=== PATIENT | female | born 1960 | race Caucasian/White ===

== ENCOUNTER 2020-07-12 00:02 | Emergency (ER) | payer MEDICARE, OTHER ==
[~2020-07-12] VITALS: Ht 154.9 cm; Wt 68.2 kg
[2020-07-12 00:09] VITALS: BP 142/79
[2020-07-12] MEDS ORDERED: ibuprofen tablet 400 MG TABLET PO ONE (00:35)
[2020-07-12] MEDS ORDERED: acetaminophen 325mg tablet PO ONE (00:35)
--- NOTE | 2020-07-12 01:00 | NUR ---
PT REPORTS CONCERN FOR HER POSSIBLE EYE FRACTURE TO THE RIGHT STATES WHE SHE WAS EVALUATED AT HOSPITAL 2 DAYS AGO SHE WAS TOLD SHE MAY HAVE A FRACTURE. DR. ROBERTS AWARE AND ORDERING CT SCAN. ONCE RESULTED, PT WILL LIKELY BE ABLE TO [facility]. GIVEN SNACKS.
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
== END 2020-07-12 03:48 | disposition home or self-care (01) ==
LOC: ER 00:03
DX: Z00.00 Encounter for general adult medical examination without abnormal findings (principal); H57.11 Ocular pain, right eye; M54.9 Dorsalgia, unspecified; M25.531 Pain in right wrist; Z56.0 Unemployment, unspecified
CPT/HCPCS: 70450; 70486; 99285

== ENCOUNTER 2020-07-16 09:59 | Emergency (ER) | payer MEDICARE ==
[~2020-07-16] VITALS: Ht 152.4 cm; Wt 69.7 kg
[2020-07-16 10:19] VITALS: BP 139/98
[2020-07-16 11:36] LABS: CLARITY,URINE CLOUDY (Clear); COLOR,URINE YELLOW (Yellow); GLUCOSE, URINE NEGATIVE (Neg); KETONES,URINE TRACE mg/dl (Neg); LEUKOCYTE ESTERASE ,URINE MODERATE (Neg); NITRITES, URINE NEGATIVE (Neg); OCCULT BLOOD,URINE TRACE-INTACT (Neg); PROTEIN,URINE 30 mg/dl (Neg)
[2020-07-16 11:40] LABS: UA COLLECTION TYPE CLN CATCH MIDSTREAM
[2020-07-16 11:43] LABS: SQUAMOUS EPITHELIAL CELL,UR FEW /LPF (FEW); WBC,URINE TNTC /HPF (0-4)
[2020-07-16 11:44] LABS: BACTERIA,URINE 2+ /HPF (Neg); RBC,URINE 0-2 /HPF (0-2)
[2020-07-16 11:45] LABS: WBC CLUMPS,URINE MANY /HPF (NEGATIVE)
--- NOTE | 2020-07-16 11:56 | NUR ---
Called patient due to not being in lobby. Called went to voicemail, no answer.
--- NOTE | 2020-07-16 12:04 | NUR ---
Per registration patient told them that her life was too busy right now and that she needed to go. I notified Dr. Gloria regarding this.
== END 2020-07-16 12:06 | disposition left against medical advice (07) ==
LOC: ER 10:00
DX: R30.0 Dysuria (principal); Z53.21 Procedure and treatment not carried out due to patient leaving prior to being seen by health care provider
CPT/HCPCS: 81001; 87077; 87088; 87186